=== PATIENT | female | born 1960 | race Caucasian/White ===

== ENCOUNTER 2021-01-16 14:51 | Emergency (ER) | payer MEDICARE, OTHER ==
[~2021-01-16] VITALS: Ht 162.6 cm; Wt 100.0 kg
[~2021-01-16 14:51] MED LIST: ALAVERT10 MG PO; ALL DAY ALLERGY10 MG PO; AZITHROMYCIN250 MG PO; DOXYCYCL HYC100 MG PO; FLONASE NASAL50 MCG; FLUARIX QUADRIV1 IN1 IM; FLUTICASONE50 MCG; FUROSEMIDE; FUROSEMIDE20 MG PO; LASIX 20 MG TAB20 MG PO; MEDROL4 M1 PO; MULT VITAMI1 PO; PNEUMOVAX 23 IM; ZITHROMAX500 MG PO
[2021-01-16] MEDS ORDERED: ELAVIL25 M1 PO (15:29)
[2021-01-16] MEDS ORDERED: LOSARTAN POTASS50 MG PO (15:30)
[2021-01-16] MEDS ORDERED: ATORVASTATIN CA40 MG PO (15:30)
[2021-01-16] MEDS ORDERED: IRON27 MG PO (15:31)
[2021-01-16] MEDS ORDERED: CALCIUM600 MG PO (15:31)
[2021-01-16 15:37] LABS: HEMATOCRIT 41.8 % (37.0-47.0); HEMOGLOBIN 13.5 g/dl (12.0-16.0); IMMATURE GRANULOCYTES 0.1 % (0.0-5.0); MEAN CELL VOLUME 99.5 fL CALC (80.0-100.0); MEAN CORPUSCULAR HGB 32.1 pG CALC (26.0-32.0); MEAN CORPUSCULAR HGB CONC 32.3 g/dL CAL (32.0-36.0); NEUT# 3.88 thou/uL (2.00-7.15); RED BLOOD COUNT 4.2 mill/uL (4.20-5.60)
[2021-01-16 16:20] LABS: ANION GAP 9 (6-22 (CALC)); BUN 17 mg/dL (8-23); BUN/CREATININE RATIO 18 (12-20 (CALC)); CARBON DIOXIDE 31 mmol/l (22-30); CHLORIDE 106 mmol/l (95-108); CREATININE 0.9 mg/dL (0.5-1.0); GFR > 60 ML/MIN (>=60 (CALC)); GFR FOR AFR.AMER. > 60 ML/MIN (>=60 (CALC)); POTASSIUM 3.7 mmol/l (3.5-5.1); SODIUM 143 mmol/l (137-146)
[2021-01-16] MEDS ORDERED: ELIQUIS STARTER5 MG PO (16:52)
[2021-01-16] MEDS ORDERED: ELIQUIS5 MG PO (16:52)
[2021-01-16 16:53] VITALS: BP 128/67
== END 2021-01-16 17:10 | disposition home or self-care (01) ==
LOC: ED 14:51
PROVIDERS: Family Medicine
DX: I82.402 Acute embolism and thrombosis of unspecified deep veins of left lower extremity (principal); I10 Essential (primary) hypertension; F32.9 Major depressive disorder, single episode, unspecified; Z86.718 Personal history of other venous thrombosis and embolism; I89.0 Lymphedema, not elsewhere classified; I82.412 Acute embolism and thrombosis of left femoral vein
CPT/HCPCS: Q9967

== ENCOUNTER 2022-04-06 13:45 | Emergency (ER) | payer MEDICARE, OTHER ==
[~2022-04-06] VITALS: Ht 162.6 cm; Wt 86.0 kg
[~2022-04-06 13:45] MED LIST changes: +ATORVASTATIN CA40 MG PO; +CALCIUM600 MG PO; +ELAVIL25 M1 PO; +ELIQUIS STARTER5 MG PO; +ELIQUIS5 MG PO; +IRON27 MG PO; +LOSARTAN POTASS50 MG PO
[2022-04-06 14:40] VITALS: BP 132/79
[2022-04-06 14:45] VITALS: BP 129/78
[2022-04-06 15:23] VITALS: BP 135/82
[2022-04-06 15:30] VITALS: BP 130/70
[2022-04-06 16:53] VITALS: BP 135/82
== END 2022-04-06 17:02 | disposition home or self-care (01) ==
LOC: ED 13:45
DX: M79.89 Other specified soft tissue disorders (principal); M79.605 Pain in left leg; I10 Essential (primary) hypertension; F32.A Depression, unspecified; Z86.718 Personal history of other venous thrombosis and embolism; Z79.01 Long term (current) use of anticoagulants

== ENCOUNTER 2022-11-04 14:26 | Emergency (ER) | payer MEDICARE, MEDICAID ==
[~2022-11-04] VITALS: Ht 162.6 cm; Wt 84.0 kg
[2022-11-04 14:50] VITALS: BP 130/69
[2022-11-04 15:00] VITALS: BP 127/74
[2022-11-04 15:59] VITALS: BP 123/65
[2022-11-04] MEDS ORDERED: MELOXICAM7.5 MG PO (16:27)
[2022-11-04] MEDS ORDERED: MEDROL4 M1 PO (16:27)
[2022-11-04 16:30] VITALS: BP 121/70
[2022-11-04 17:47] VITALS: BP 121/70
== END 2022-11-04 17:51 | disposition home or self-care (01) ==
LOC: ED 14:26
DX: M25.561 Pain in right knee (principal); I10 Essential (primary) hypertension; F32.A Depression, unspecified; Z86.718 Personal history of other venous thrombosis and embolism